=== PATIENT | female | born 1955 | race Caucasian/White ===

== ENCOUNTER 2017-11-23 09:14 | Emergency (ER) | payer OTHER ==
[~2017-11-23] VITALS: Ht 154.9 cm; Wt 68.0 kg
[~2017-11-23 09:14] MED LIST: ATIVAN1 MG PO; LISINOPRIL5 MG PO; SYNTHROID50 MCG PO
[2017-11-23] MEDS ORDERED: CYCLOBENZAPRINE5 MG PO (10:16)
[2017-11-23] MEDS ORDERED: IBUPROFEN 800800 MG PO (10:16)
[2017-11-23 11:00] VITALS: BP 118/62
== END 2017-11-23 11:00 | disposition home or self-care (01) ==
LOC: M.ERS 09:14
DX: S06.0X0A Concussion without loss of consciousness, initial encounter (principal); I10 Essential (primary) hypertension; W00.0XXA Fall on same level due to ice and snow, initial encounter; Y93.89 Activity, other specified; Y92.89 Other specified places as the place of occurrence of the external cause; Y99.8 Other external cause status

== ENCOUNTER → 2019-01-20 | Outpatient (CLI) | payer OTHER ==
[~2019-01-20] MED LIST changes: +CYCLOBENZAPRINE5 MG PO; +IBUPROFEN 800800 MG PO
== END ==
LOC: M.RAD 07:51
DX: Z12.31 Encounter for screening mammogram for malignant neoplasm of breast (principal)

== ENCOUNTER 2020-05-12 12:32 | Emergency (ER) | payer OTHER ==
[~2020-05-12] VITALS: Ht 157.5 cm; Wt 63.5 kg
[2020-05-12] MEDS ORDERED: SERTRALINE HCL100 MG PO (12:51)
[2020-05-12] MEDS ORDERED: TOPROL XL50 MG PO (12:51)
[2020-05-12 13:22] LABS: ABSOLUTE EOSINOPHILS 0.1 thou/uL (0.0-0.7); ABSOLUTE LYMPHOCYTES 1.8 thou/uL (0.8-5.3); ABSOLUTE MONOCYTES 0.3 thou/uL (0.0-1.2); ABSOLUTE NEUTROPHILS 2.5 thou/uL (1.6-8.1); BASOPHILS 0.9 %; EOSINOPHILS 1.8 %; HEMOGLOBIN 13.1 gm/dL (12.0-15.0); LYMPHOCYTES 37.8 %; MCH 30.5 pg (26.0-34.0); MCHC 33.6 g/dL (28.0-37.0); MCV 90.9 fL (80.0-100.0); MPV 6.9 fl. (7.2-11.1); NUCLEATED RBCS 0 /100WBC; PLATELET COUNT* 230 thou/uL (150-400); POLYS 52.5 %; RBC 4.29 mil/uL (4.20-5.00); RDW-CV 13.6 % (10.5-14.5); WBC 4.7 thou/uL (4.0-11.0)
[2020-05-12 13:31] LABS: CALCIUM 8.5 mg/dL (8.5-10.1); CREATININE 0.9 mg/dL (0.6-1.3); POTASSIUM 3.7 mmol/L (3.5-5.1)
[2020-05-12 13:35] LABS: ALBUMIN 3.7 g/dL (3.4-5.0); TOTAL BILIRUBIN 0.5 mg/dL (<0.1-1.0)
[2020-05-12 13:40] LABS: URINE BILIRUBIN NEGATIVE (Negative); URINE BLOOD NEGATIVE (Negative); URINE CLARITY CLEAR; URINE COLOR YELLOW; URINE GLUCOSE-RANDOM NEGATIVE (Negative); URINE KETONES NEGATIVE (Negative); URINE LEUKOCYTES-REFLEX 1+ (Negative); URINE NITRITE-REFLEX NEGATIVE (Negative); URINE PROTEIN NEGATIVE (Negative); URINE UROBILINOGEN 0.2 E.U./dl (0.2-1.0)
[2020-05-12 13:51] LABS: SQUAMOUS 0-3 Few /LPF (0-3)
[2020-05-12 13:52] LABS: BACTERIA-REFLEX 1-9 Few /HPF (None Seen); URINE RBC 0-2 Rare /HPF (0-2); URINE WBC-REFLEX 0-5 Rare /HPF (0-5)
[2020-05-12 13:53] LABS: CASTS None Seen /LPF (None Seen); CRYSTALS None Seen /LPF (None Seen); MUCUS None Seen strn/LPF (None Seen)
[2020-05-12] MEDS ORDERED: BACTRIM DS TAB1 EAC1 PO (14:44)
[2020-05-12] MEDS ORDERED: NORCO 5-325 TA1 EAC2 PO (14:44)
[2020-05-12 15:15] VITALS: BP 128/73
--- NOTE | 2020-05-13 15:37 | EKG ---
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
== END 2020-05-12 15:15 | disposition home or self-care (01) ==
LOC: M.ERS 12:32
PROVIDERS: Emergency Medicine Emergency Medical Services
DX: N39.0 Urinary tract infection, site not specified (principal); R19.7 Diarrhea, unspecified; I10 Essential (primary) hypertension

== ENCOUNTER → 2020-05-22 | Outpatient (CLI) | payer OTHER ==
[~2020-05-22] MED LIST changes: +BACTRIM DS TAB1 EAC1 PO; +NORCO 5-325 TA1 EAC2 PO; +SERTRALINE HCL100 MG PO; +TOPROL XL50 MG PO
== END ==
LOC: M.ULTRA 05-13 12:22 → M.NUC 07:45 → M.ULTRA 08:00
PROVIDERS: ATTEND Internal Medicine
DX: N83.202 Unspecified ovarian cyst, left side (principal); K80.71 Calculus of gallbladder and bile duct without cholecystitis with obstruction; K76.89 Other specified diseases of liver; K82.8 Other specified diseases of gallbladder

== ENCOUNTER → 2020-08-15 | Outpatient (CLI) | payer OTHER ==
--- NOTE | 2020-08-16 15:42 | CARDNUC ---
[place] [address] CARDIAC NUCLEAR IMAGING REPORT Name: MUNIR JARRELL Room: [facility]#: [id number] Admission: 08/15/20 Attend Phys: Tez Solis, Discharge: Date of : 51 Date of Service: 08/16/20 1542 Report #: [id number] THIS REPORT FOR: cc: Hector Wells MD, Dean L. MD Park, Jin S. MD ~ APPROVED REPORT Imaging Protocol: Rest Tc-99m/Stress Tc-99m 1 day Study performed: 08/15/2020 14:15:53 Indication: Palpitations Patient Location: Out-Patient Stress Tech: Yaneth Yoon Stress Nurse: Odalis Lynn RN NM Tech:RODRIGUEZ Reyes Ht: 5 ft 1 in Wt: 143 lbs BSA: 1.64 m2 BMI: 27.01 Medical History Medical History: HTN, Hyperlipidemia, Valvular heart disease Medications: pst686, atorvastatin, metoprolol Allergies: No known drug allergies Cardiac Risk Factors: Age, HTN, Hyperlipidemia, FHX of CAD Exercise History: Physically active Meds Held (24 hrs): metoprolol Resting Data Rest SPECT myocardial perfusion imaging was performed in supine position 30 minutes following the intravenous injection of 10.8 mCi of Tc-99m Sestamibi. Time of rest injection: 1250 Date: 08/15/2020 The images were gated to evaluate regional wall motion and calculate left ventricular ejection fraction. Administration Route: IV Administration Site: Right AC Exercise Stress At peak stress, the patient was injected intravenously with 28.1mCi of Tc-99m Sestamibi. Time of stress injection: 1420 Date: 08/15/2020 Administration Route: [place] [address] CARDIAC NUCLEAR IMAGING REPORT Name: MUNIR JARRELL Room: [facility]#: [id number] Admission: 08/15/20 Attend Phys: Tez Solis, Discharge: Date of : 51 Date of Service: 08/16/20 1542 Report #: [id number] Administration Site: Right AC Gated Stress SPECT was performed 30 minutes after stress injection. The images were gated to evaluate regional wall motion and calculate left ventricular ejection fraction. Prone imaging was performed. Stress Test Details Stress Test: Exercise stress testing was performed using a Cirilo protocol. HR Max Heart Rate (APMHR): 153 bpm Resting HR: 86 bpm Target HR (85% APMHR): 130 bpm Max HR Achieved: 167 bpm % of APMHR: 109 Recovery HR: 119 bpm BP Resting BP: 140/72 mmHg Max BP: 171/82 mmHg Recovery BP: 135/84 mmHg ECG Resting ECG: Sinus Rhythm Stress ECG: Sinus Rhythm ST Change: Non-ischemic Clinical Reason for Termination: Fatigue Exercise duration: 6 min 38 sec Exercise capacity: 8.01 METs Functional Aerobic Impairment 109% Study Quality Study: Good Study Data Post stress, the left ventricular ejection was 73%.. Perfusion Normal left ventricular perfusion. Normal perfusion on both the stress and rest images. Wall Motion Normal left [place] [address] CARDIAC NUCLEAR IMAGING REPORT Name: MUNIR JARRELL Room: [facility]#: [id number] Admission: 08/15/20 Attend Phys: Tez Solis, Discharge: Date of : 51 Date of Service: 08/16/201541 Report #: [id number] Nuclear Conclusion ECG Findings: negative for ischemia Clinical Findings: negative for ischemia Nuclear Findings: negative for ischemia Exercise Capacity: normal Left Ventricular Function: normal Risk Study: low This study is of low probability for inducible ischemia or prior infarct. Normal global and segmental LV systolic function. <ELECTRONICALLY SIGNED> By: Den Bridges MD 08/16/201541 41 41 Den Bridges MD /INF
== END ==
LOC: M.NUC 07-31 15:01 → M.CRD 08:00 → M.NUC 08:00
PROVIDERS: ATTEND Internal Medicine Cardiovascular Disease
DX: R42 Dizziness and giddiness (principal); R61 Generalized hyperhidrosis

== ENCOUNTER → 2020-08-26 | Outpatient (CLI) | payer OTHER ==
[2020-08-27 12:06] LABS: ANA INTERPRETATION Negative (Negative); ANTI-SSA <0.2 AI (0.0-0.9)
== END ==
LOC: M.LAB 12:53
PROVIDERS: ATTEND Psychiatry & Neurology Neuromuscular Medicine
DX: G45.0 Vertebro-basilar artery syndrome (principal); I63.332 Cerebral infarction due to thrombosis of left posterior cerebral artery

== ENCOUNTER → 2020-10-01 | Outpatient (CLI) | payer OTHER ==
--- NOTE | 2020-10-01 15:20 | 2DMMODE ---
[place] [address] 2 D/M-MODE ECHOCARDIOGRAM Name: MUNIR JARRELL Room: [facility]#: [id number] Admission: 10/01/20 Attend Phys: Adriana Cowan, Discharge: Date of : 51 Date of Service: 10/01/20 1520 Report #: [id number] THIS REPORT FOR: cc: Hector Wells MD, Dean L. MD Biggs, F. Douglas MD [facility] ~ APPROVED REPORT Study performed: 10/01/2020 12:46:46 EXAM: Comprehensive 2D, Doppler, and color-flow Echocardiogram / Bubble Study Patient Location: Out-Patient BSA: 1.67 HR: 82 bpm BP: 118/70 mmHg Other Information Study Quality: Good Indications CVA/TIA 2D Dimensions IVSd: 8.89 (7-11mm) LVOT Diam: 20.28 (18-24mm) LVDd: 43.48 mm PWd: 9.05 (7-11mm) Ascending Ao: 29.00 (22-36mm) LVDs: 30.41 (25-40mm) Aortic Root: 26.15 mm Volumes Left Atrial Volume (Systole) LA ESV Index: 15.30 mL/m2 Aortic Valve AoV Peak Srinivasan.: 1.05 m/s AO Peak Gr.: 4.37 mmHg LVOT Max P.42 mmHg AO Mean Gr.: 2.34 mmHg LVOT Mean P.14 mmHg LVOT Max V: 0.78 m/s AO V2 VTI: 21.05 cm LVOT Mean V: 0.49 m/s MIGUEL A (VTI): 2.56 cm2 LVOT V1 VTI: 16.67 cm Mitral Valve E/A Ratio: 0.85 [place] [address] 2 D/M-MODE ECHOCARDIOGRAM Name: MUNIR JARRELL Room: [facility]#: [id number] Admission: 10/01/20 Attend Phys: Adriana Cowan, Discharge: Date of : 51 Date of Service: 10/01/20 1520 Report #: [id number] MV Decel. Time: 238.27 ms MV E Max Srinivasan.: 0.49 m/s MV PHT: 69.10 ms MVA (PHT): 3.18 cm2 TDI E/Lateral E': 4.08 E/Medial E': 7.00 Medial E' Srinivasan.: 0.07 m/s Lateral E' Srinivasan.: 0.12 m/s Pulmonary Valve PV Peak Srinivasan.: 0.85 m/s PV Peak Gr.: 2.87 mmHg Left Ventricle The left ventricle is normal size. There is normal LV segmental wall motion. There is normal left ventricular wall thickness. Left ventricular systolic function is normal. The left ventricular ejection fraction is within the normal range. LVEF is 55-60%. Grade I - abnormal relaxation pattern. Right Ventricle The right ventricle is normal size. The right ventricular systolic function is normal. Atria The left atrium size is normal. Injection of bubbles documented no interatrial shunt. The right atrium size is normal. Aortic Valve The aortic valve is normal in structure. No aortic regurgitation is present. There is no aortic valvular stenosis. Mitral Valve The mitral valve is normal in structure. There is no mitral valve regurgitation noted. No evidence of mitral valve stenosis. Tricuspid Valve The tricuspid valve is normal in structure. There is no tricuspid valve regurgitation noted. Pulmonic Valve The pulmonary valve is normal in structure. There is no pulmonic valvular regurgitation. Great Vessels The aortic root is normal in size. IVC [place] [address] 2 D/M-MODE ECHOCARDIOGRAM Name: MUNIR JARRELL Room: [facility] Gabriella#: [id number] Admission: 10/01/20 Attend Phys: Adriana Cowan, Discharge: Date of : 51 Date of Service: 10/01/20 1520 Report #: [id number] collapses >50% with inspiration. Pericardium There is no pericardial effusion. <Conclusion> LVEF is 55-60%. Grade I - abnormal relaxation pattern. There is normal left ventricular wall thickness. The left ventricle is normal size. Left ventricular systolic function is normal. The left ventricular ejection fraction is within the normal range. There is normal LV segmental wall motion. No aortic regurgitation is present. There is no mitral valve regurgitation noted. There is no tricuspid valve regurgitation noted. There is no pulmonic valvular regurgitation. Injection of bubbles documented no interatrial shunt. <ELECTRONICALLY SIGNED> By: Ronen Aldana MD, FACC 10/01/20 1520 1520 1520 Ronen Aldana MD, FACC /INF
== END ==
LOC: M.CRD 09-24 15:00
PROVIDERS: ATTEND Nurse Practitioner
DX: Z86.73 Personal history of transient ischemic attack (TIA), and cerebral infarction without residual deficits (principal)

== ENCOUNTER → 2020-11-20 | Outpatient (CLI) | payer OTHER ==
[2020-11-20 08:16] LABS: CHOLESTEROL 139 mg/dL (<200); HDL CHOLESTEROL 58 mg/dL (>40); LDL CHOLESTEROL 72 mg/dL (<100); SERUM ASSESSMENT Clear; TC:HDL 2.4 Ratio (Not establshd); TRIGLYCERIDE 49 mg/dL (<150); VLDL 10 mg/dL (<40)
== END ==
LOC: M.LAB 07:50
PROVIDERS: ATTEND Internal Medicine Cardiovascular Disease
DX: E03.9 Hypothyroidism, unspecified (principal); E78.2 Mixed hyperlipidemia

== ENCOUNTER 2021-02-28 21:43 | Observation (INO) | payer OTHER ==
[~2021-02-28] VITALS: Ht 154.9 cm; Wt 73.0 kg
[2021-02-28 21:48] VITALS: BP 176/88
[2021-02-28 22:14] LABS: ABSOLUTE BASOPHILS 0.1 thou/uL (0.0-0.2); ABSOLUTE EOSINOPHILS 0.3 thou/uL (0.0-0.7); ABSOLUTE LYMPHOCYTES 1.8 thou/uL (0.8-5.3); ABSOLUTE MONOCYTES 0.7 thou/uL (0.0-1.2); ABSOLUTE NEUTROPHILS 1.6 thou/uL (1.6-8.1); BASOPHILS 1.4 %; HEMATOCRIT 37.2 % (37.0-47.0); HEMOGLOBIN 12.3 gm/dL (12.0-15.0); LYMPHOCYTES 41.3 %; MCH 29.4 pg (26.0-34.0); MCV 89.1 fL (80.0-100.0); MONOCYTES 15.2 %; NUCLEATED RBCS 0 /100WBC; PLATELET COUNT* 234 thou/uL (150-400); POLYS 35.1 %; RBC 4.18 mil/uL (4.20-5.00); RDW-CV 14.5 % (10.5-14.5); WBC 4.5 thou/uL (4.0-11.0)
[2021-02-28 22:22] LABS: CREATININE 0.8 mg/dL (0.6-1.3)
[2021-02-28 22:25] LABS: PROTIME 10.3 Seconds (9.20-11.50)
[2021-02-28 22:33] LABS: ALBUMIN 3.7 g/dL (3.4-5.0); MAGNESIUM 2.2 mg/dL (1.8-2.4); TOTAL BILIRUBIN 0.4 mg/dL (<0.1-1.0); TOTAL PROTEIN 7.3 g/dL (6.4-8.2)
[2021-03-01 01:28] LABS: URINE BILIRUBIN NEGATIVE (Negative); URINE BLOOD TRACE (Negative); URINE CLARITY CLEAR; URINE COLOR YELLOW; URINE GLUCOSE-RANDOM NEGATIVE (Negative); URINE KETONES NEGATIVE (Negative); URINE LEUKOCYTES-REFLEX NEGATIVE (Negative); URINE NITRITE-REFLEX NEGATIVE (Negative); URINE PROTEIN NEGATIVE (Negative); URINE SPECIFIC GRAVITY <= 1.005 (1.005-1.030); URINE UROBILINOGEN 0.2 E.U./dl (0.2-1.0)
[2021-03-01 01:35] VITALS: BP 128/62
--- NOTE | 2021-03-01 06:52 | NUR ---
NO ACUTE CHANGES THROUGHOUT SHIFT. ALL ROUNDINGS COMPLETED, ALL NEEDS MET. CALL LIGHT AND PERSONAL ITEMS IN REACH. BED LOCKED AND IN LOW POSITION. SEE CHARTING FOR DETAILS. MED REC NOT COMPLETED PT DID NOT KNOW OR HAVE A LIST OF HER CURRENT MEDICATIONS. PT IS GOING TO HAVE HER BRING IN HER MEDICATIONS TO VERIFY MED REC.
[2021-03-01 08:00] VITALS: BP 119/69
[2021-03-01] MEDS ORDERED: ASPIRIN325 PO (09:36)
[2021-03-01] MEDS ORDERED: LIPITOR 20 MG T20 M1 PO (09:36)
[2021-03-01] MEDS ORDERED: METOPROLOL SUCC25 M1 PO (09:38)
[2021-03-01] MEDS ORDERED: AMBIEN5 MG PO (09:39)
[2021-03-01 11:47] VITALS: BP 119/69
[2021-03-01 11:52] VITALS: BP 119/69
--- NOTE | 2021-03-01 12:05 | NUR ---
ASSUMED CARE OF PT AT 0730. PT A&0X4, DENIES ANY CHEST PAIN OR SHORTNESS OF BREATH AT THIS TIME. TRACING SR ON THE SENIOR MARKET INTELLIGENCE CONSULTANT. ON RA SAT UPPER 90'S. PT UP AD THO IN ROOM. CARDIOLOGY HERE TO SEE PT. NO NEW ORDERS RECEIVED. HOME MEDICATIONS RECONCILED AND RESTARTED. PT GOAL FOR TODAY IS TO REMAIN FREE FROM CHEST PAIN AND DISCHARGE PLANNING TO HOME. AM ASSESSMENT CHARTED. MEDICATIONS PER MAR. PT REPOSITIONS SELF. HOURLY ROUNDING OBSERVED. BED IN LOW POSITION. CALL LIGHT WITHIN REACH. WILL CONTINUE PLAN OF CARE.
--- NOTE | 2021-03-01 15:19 | NUR ---
DISCHARGE ORDERS RECEIVED. DISCHARGE INSTRUCTIONS, CARE NOTES AND FOLLOW UP APPTS GIVEN TO PT. PT COMMUNICATES UNDERSTANDING OF DISCHARGE TEACHING. IV AND MANAGER AMBULATORY REMOVED. PT DISCHARGED WITH ALL BELONGINGS AND PAPERWORK VIA WHEELCHAIR WITH NURSING STAFF TO SPOUSE OWN PERSONAL VEHICLE.
--- NOTE | 2021-03-03 10:49 | EKG ---
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
== END 2021-03-01 15:19 | disposition home or self-care (01) ==
LOC: M.ERS 21:43 → M.TBA-ER 03-01 00:54 → M.2W 03-01 01:40
PROVIDERS: Emergency Medicine; ADMIT Internal Medicine; ATTEND Internal Medicine
DX: R07.89 Other chest pain (principal); I10 Essential (primary) hypertension; Z20.822 Contact with and (suspected) exposure to COVID-19; Z86.73 Personal history of transient ischemic attack (TIA), and cerebral infarction without residual deficits; Z79.899 Other long term (current) drug therapy; Z79.82 Long term (current) use of aspirin; Z90.710 Acquired absence of both cervix and uterus

== ENCOUNTER 2021-11-12 00:46 | Emergency (ER) | payer OTHER, MEDICARE ==
[~2021-11-12] VITALS: Ht 154.9 cm; Wt 60.3 kg
[~2021-11-12 00:46] MED LIST changes: +AMBIEN5 MG PO; +ASPIRIN325 PO; +LIPITOR 20 MG T20 M1 PO; +METOPROLOL SUCC25 M1 PO
[2021-11-12 01:36] LABS: ABSOLUTE BASOPHILS 0.1 thou/uL (0.0-0.2); BASOPHILS 1.2 %; HEMOGLOBIN 11.8 gm/dL (12.0-15.0)
[2021-11-12 01:38] LABS: ABSOLUTE EOSINOPHILS 0.2 thou/uL (0.0-0.7); ABSOLUTE MONOCYTES 0.4 thou/uL (0.0-1.2); ABSOLUTE NEUTROPHILS 2.2 thou/uL (1.6-8.1); EOSINOPHILS 4.3 %; HEMATOCRIT 35.5 % (37.0-47.0); LYMPHOCYTES 41.1 %; MCH 30.3 pg (26.0-34.0); MCHC 33.1 g/dL (28.0-37.0); MCV 91.3 fL (80.0-100.0); MONOCYTES 8.6 %; MPV 7.2 fl. (7.2-11.1); NUCLEATED RBCS 0 /100WBC; PLATELET COUNT* 223 thou/uL (150-400); POLYS 44.8 %; RBC 3.89 mil/uL (4.20-5.00); WBC 4.8 thou/uL (4.0-11.0)
[2021-11-12 01:50] LABS: CALCIUM 8.7 mg/dL (8.5-10.1); CREATININE 0.8 mg/dL (0.6-1.3); POTASSIUM 3.2 mmol/L (3.5-5.1)
[2021-11-12 01:54] LABS: ALBUMIN 3.7 g/dL (3.4-5.0); TOTAL BILIRUBIN 0.4 mg/dL (<0.1-1.0); TOTAL PROTEIN 6.5 g/dL (6.4-8.2)
[2021-11-12 02:56] LABS: URINE BILIRUBIN NEGATIVE (Negative); URINE BLOOD TRACE (Negative); URINE CLARITY CLEAR; URINE COLOR YELLOW; URINE GLUCOSE-RANDOM NEGATIVE (Negative); URINE KETONES TRACE (Negative); URINE LEUKOCYTES-REFLEX NEGATIVE (Negative); URINE NITRITE-REFLEX NEGATIVE (Negative); URINE PROTEIN NEGATIVE (Negative); URINE UROBILINOGEN 0.2 E.U./dl (0.2-1.0)
[2021-11-12] MEDS ORDERED: HYDROCODON-ACE1 EAC7 PO (05:15)
[2021-11-12] MEDS ORDERED: ZOFRAN ODT4 MG DISSOLVE (05:15)
[2021-11-12 05:46] VITALS: BP 118/58
--- NOTE | 2021-11-12 11:05 | EKG ---
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1955 Requested By: Santy Mcgee Order Number: [id number] MD: Rufino Freedman Measurements Intervals [place] Rate: 82 P: 78 CT: 151 QRS: 8 QRSD: 104 T: 65 QT: 431 QTc: 504 Interpretive Statements Sinus rhythm Prolonged QT interval Compared to ECG 02/28/2021 21:49:00 Prolonged QT interval now present Left-axis deviation no longer present Electronically Signed On 11-12-2021 11:05:18 NON GARMENT SEWING MACHINE OPERATOR by Rufino Freedman [email or web address] <ELECTRONICALLY SIGNED> By: Rufino Freedman MD, [facility] 11/12/21 1105 0123 0123 Rufino Freedman MD, [facility] /EPI
== END 2021-11-12 05:47 | disposition home or self-care (01) ==
LOC: M.ERS 00:46
PROVIDERS: Emergency Medicine Emergency Medical Services
DX: R10.815 Periumbilic abdominal tenderness (principal); I10 Essential (primary) hypertension; Z90.710 Acquired absence of both cervix and uterus; Z86.73 Personal history of transient ischemic attack (TIA), and cerebral infarction without residual deficits; Z79.82 Long term (current) use of aspirin; Z79.899 Other long term (current) drug therapy

== ENCOUNTER → 2021-11-25 | Outpatient (CLI) | payer OTHER, MEDICARE ==
[~2021-11-25] MED LIST changes: +HYDROCODON-ACE1 EAC7 PO; +ZOFRAN ODT4 MG DISSOLVE
[2021-11-25 08:24] LABS: CHOLESTEROL 132 mg/dL (<200); HDL CHOLESTEROL 67 mg/dL (>40); LDL CHOLESTEROL 54 mg/dL (<100); SERUM ASSESSMENT CLEAR; TRIGLYCERIDE 58 mg/dL (<150); VLDL 12 mg/dL (<40)
== END ==
LOC: M.LAB 07:49
PROVIDERS: ATTEND Internal Medicine Cardiovascular Disease
DX: E78.2 Mixed hyperlipidemia (principal)